=== PATIENT | female | born 1990 | race African-American/Black ===

== ENCOUNTER 2018-06-30 03:11 | Emergency (ER) | payer BC, OTHER ==
[~2018-06-30] VITALS: Ht 149.9 cm; Wt 99.8 kg
[~2018-06-30 03:11] MED LIST: AMOXICILLIN 50500 MG PO; IBUPROFEN 800800 M1 PO; KEFLEX500 M1 PO; ONDANSETRON HCL4 M2 PO; PREDNISONE 20 M20 MG PO; TESSALON PERLE100 MG PO; TRI-SPRINTEC1 EACH PO; ZPAK PO
[2018-06-30 03:12] VITALS: BP 128/106
[2018-06-30] MEDS ORDERED: PROBIOTIC1 EAC1 PO (03:15)
[2018-06-30] MEDS ORDERED: TRI-SPRINTEC1 EACH PO (03:16)
[2018-06-30] MEDS ORDERED: METFORMIN HCL500 MG PO (03:16)
[2018-06-30] MEDS ORDERED: METRONIDAZOLE500 M4 PO (03:18)
[2018-06-30] MEDS ORDERED: TESSALON PERLE100 MG PO (04:37)
== END 2018-06-30 05:00 | disposition home or self-care (01) ==
LOC: ER 03:11
DX: J06.9 Acute upper respiratory infection, unspecified (principal); J45.909 Unspecified asthma, uncomplicated

== ENCOUNTER 2018-12-30 08:13 | Emergency (ER) | payer OTHER ==
[~2018-12-30] VITALS: Ht 149.9 cm; Wt 106.6 kg
[~2018-12-30 08:13] MED LIST changes: +METFORMIN HCL500 MG PO; +METRONIDAZOLE500 M4 PO; +PROBIOTIC1 EAC1 PO
[2018-12-30] MEDS ORDERED: NAPROSYN500 MG PO (10:54)
[2018-12-30] MEDS ORDERED: TRAMADOL 50 MG50 MG PO (10:54)
[2018-12-30 11:03] VITALS: BP 124/52
== END 2018-12-30 11:04 | disposition home or self-care (01) ==
LOC: ER 08:13
DX: M25.571 Pain in right ankle and joints of right foot (principal); M25.551 Pain in right hip; E28.2 Polycystic ovarian syndrome; J45.909 Unspecified asthma, uncomplicated; E66.9 Obesity, unspecified; Z68.42 Body mass index [BMI] 45.0-49.9, adult; W10.8XXA Fall (on) (from) other stairs and steps, initial encounter; Y93.89 Activity, other specified; Y92.89 Other specified places as the place of occurrence of the external cause; Y99.0 Civilian activity done for income or pay

== ENCOUNTER 2019-01-07 13:54 | Emergency (ER) | payer BC, OTHER ==
[~2019-01-07] VITALS: Ht 152.4 cm; Wt 106.6 kg
[~2019-01-07 13:54] MED LIST changes: +NAPROSYN500 MG PO; +TRAMADOL 50 MG50 MG PO
[2019-01-07 15:23] VITALS: BP 140/93
== END 2019-01-07 15:32 | disposition home or self-care (01) ==
LOC: ER 13:54
DX: S96.912A Strain of unspecified muscle and tendon at ankle and foot level, left foot, initial encounter (principal); E28.2 Polycystic ovarian syndrome; J45.909 Unspecified asthma, uncomplicated; X58.XXXA Exposure to other specified factors, initial encounter; Y92.89 Other specified places as the place of occurrence of the external cause; Y93.89 Activity, other specified; Y99.8 Other external cause status

== ENCOUNTER 2020-06-17 11:52 | Emergency (ER) | payer BC, OTHER ==
[~2020-06-17] VITALS: Ht 149.9 cm; Wt 99.8 kg
[2020-06-17 13:10] LABS: URINE BILIRUBIN NEGATIVE (Negative); URINE BLOOD NEGATIVE (Negative); URINE CLARITY CLEAR; URINE COLOR YELLOW; URINE GLUCOSE-RANDOM* NEGATIVE (Negative); URINE KETONES NEGATIVE (Negative); URINE LEUKOCYTES-REFLEX NEGATIVE (Negative); URINE NITRITE-REFLEX NEGATIVE (Negative); URINE PROTEIN (DIPSTICK) NEGATIVE (Negative)
[2020-06-17 13:14] LABS: ABSOLUTE NEUTROPHILS 3.4 thou/uL (1.4-8.2); BASOPHILS 1.1 % (0.0-2.0); EOSINOPHILS 1.4 % (0.0-3.0); HEMATOCRIT 38.8 % (37.0-47.0); HEMOGLOBIN 13.1 gm/dL (12.0-15.0); LYMPHOCYTES 39.8 % (24.0-44.0); MCH 28.6 pg (26.0-34.0); MCHC 33.8 g/dL (28.0-37.0); MCV 84.6 fL (80.0-100.0); PLATELET COUNT 228 thou/uL (150-400); POLYS 47.7 % (36.0-66.0); RBC 4.58 mil/uL (4.20-5.00); RDW 13.4 % (10.5-14.5)
[2020-06-17 13:18] LABS: CALCIUM 9.3 mg/dL (8.5-10.1); CREATININE 0.9 mg/dL (0.6-1.0); POTASSIUM 3.7 mmol/L (3.5-5.1)
[2020-06-17 13:20] LABS: AMP/METHAMP Negative (Negative); BARBITURATES Negative (Negative); BENZODIAZEPINES Negative (Negative); COCAINE Negative (Negative); METHADONE Negative (Negative); OPIATES Negative (Negative); PCP Negative (Negative)
[2020-06-17 14:39] VITALS: BP 141/82
== END 2020-06-17 14:39 | disposition home or self-care (01) ==
LOC: ER 11:52
PROVIDERS: Nurse Practitioner
DX: R53.83 Other fatigue (principal); R41.3 Other amnesia; J45.909 Unspecified asthma, uncomplicated; Z79.899 Other long term (current) drug therapy

== ENCOUNTER 2020-08-18 03:47 | Emergency (ER) | payer BC, OTHER ==
[~2020-08-18] VITALS: Ht 149.9 cm; Wt 98.9 kg
[2020-08-18] MEDS ORDERED: OMEPRAZOLE 20 M20 M1 PO (04:03)
[2020-08-18] MEDS ORDERED: DESYREL300 MG (04:04)
[2020-08-18 04:21] LABS: URINE BILIRUBIN NEGATIVE (Negative); URINE BLOOD NEGATIVE (Negative); URINE CLARITY CLEAR; URINE COLOR YELLOW; URINE GLUCOSE-RANDOM* NEGATIVE (Negative); URINE KETONES NEGATIVE (Negative); URINE LEUKOCYTES-REFLEX NEGATIVE (Negative); URINE NITRITE-REFLEX NEGATIVE (Negative); URINE PROTEIN (DIPSTICK) NEGATIVE (Negative); URINE UROBILINOGEN 0.2 E.U./dl (0.2-1.0)
[2020-08-18 04:53] LABS: CALCIUM 9.1 mg/dL (8.5-10.1); CREATININE 0.8 mg/dL (0.6-1.0); POTASSIUM 4.6 mmol/L (3.5-5.1)
[2020-08-18 04:58] LABS: ALBUMIN 3.5 g/dL (3.4-5.0); TOTAL PROTEIN 7.6 g/dL (6.4-8.2)
[2020-08-18 05:09] LABS: TOTAL BILIRUBIN 0.5 mg/dL (0.2-1.0)
[2020-08-18 05:55] LABS: ABSOLUTE NEUTROPHILS 6.7 thou/uL (1.4-8.2); BASOPHILS 0.4 % (0.0-2.0); EOSINOPHILS 0.7 % (0.0-3.0); HEMOGLOBIN 14.2 gm/dL (12.0-15.0); MCH 29.1 pg (26.0-34.0); MCHC 34.6 g/dL (28.0-37.0); MCV 83.9 fL (80.0-100.0); MONOCYTES 8.4 % (1.0-8.0); PLATELET COUNT 228 thou/uL (150-400); POLYS 76.5 % (36.0-66.0); RBC 4.89 mil/uL (4.20-5.00); WBC 8.7 thou/uL (4.0-11.0)
[2020-08-18] MEDS ORDERED: ZOFRAN ODT4 MG PO (06:07)
[2020-08-18 07:13] VITALS: BP 140/78
== END 2020-08-18 07:25 | disposition home or self-care (01) ==
LOC: ER 03:47
PROVIDERS: Emergency Medicine
DX: K52.9 Noninfective gastroenteritis and colitis, unspecified (principal); J45.909 Unspecified asthma, uncomplicated

== ENCOUNTER 2020-08-22 20:08 | Emergency (ER) | payer BC, OTHER ==
[~2020-08-22] VITALS: Ht 149.9 cm; Wt 98.9 kg
[~2020-08-22 20:08] MED LIST changes: +DESYREL300 MG; +OMEPRAZOLE 20 M20 M1 PO; +ZOFRAN ODT4 MG PO
[2020-08-22] MEDS ORDERED: PHENERGAN 25 MG25 M1 PO (21:27)
[2020-08-22 22:33] VITALS: BP 149/88
== END 2020-08-22 22:33 | disposition home or self-care (01) ==
LOC: ER 20:08
DX: J06.9 Acute upper respiratory infection, unspecified (principal); Z20.822 Contact with and (suspected) exposure to COVID-19; J45.909 Unspecified asthma, uncomplicated; Z79.899 Other long term (current) drug therapy

== ENCOUNTER 2021-01-12 17:38 | Emergency (ER) | payer BC, OTHER ==
[2021-01-12 17:38] VITALS: BP 158/94
[~2021-01-12 17:38] MED LIST changes: +PHENERGAN 25 MG25 M1 PO
[2021-01-12 18:09] LABS: URINE BILIRUBIN NEGATIVE (Negative); URINE BLOOD NEGATIVE (Negative); URINE CLARITY CLEAR; URINE COLOR YELLOW; URINE GLUCOSE-RANDOM* NEGATIVE (Negative); URINE KETONES NEGATIVE (Negative); URINE LEUKOCYTES-REFLEX NEGATIVE (Negative); URINE NITRITE-REFLEX NEGATIVE (Negative); URINE PROTEIN (DIPSTICK) NEGATIVE (Negative); URINE UROBILINOGEN 0.2 E.U./dl (0.2-1.0)
[2021-01-12] MEDS ORDERED: ONDANSETRON HCL4 M2 PO (19:15)
[2021-01-12] MEDS ORDERED: TESSALON PERLE100 MG PO (19:15)
== END 2021-01-12 19:27 | disposition home or self-care (01) ==
LOC: ER 17:38
PROVIDERS: Nurse Practitioner
DX: R05 Cough (principal); R19.7 Diarrhea, unspecified; Z20.822 Contact with and (suspected) exposure to COVID-19; J45.909 Unspecified asthma, uncomplicated; E28.2 Polycystic ovarian syndrome